=== PATIENT | female | born 1975 | race American Indian/Alaskan Native ===

== ENCOUNTER 2017-03-06 14:52 | Outpatient (CLI) | payer OTHER | END 2017-03-06 14:53 | disposition home or self-care (01) | LOC: LABHHL 14:52 | PROVIDERS: ATTEND Surgery | DX: D24.1 Benign neoplasm of right breast (principal) | CPT/HCPCS: 88305 ==

== ENCOUNTER 2017-04-06 11:12 | Emergency (ER) | payer OTHER ==
[2017-04-06 11:34] VITALS: BP 125/69
[2017-04-06] MEDS ORDERED: TYLENOL PO ONE (11:37)
[2017-04-06] MEDS ORDERED: ZOFRAN ODT PO ONE (11:37)
--- NOTE | 2017-04-06 13:24 | Emergency Department Report ---
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 female presents with sorethroat, sinus pressure , headache, congestion, chills, and fever for 1 day. 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 She is nauseous but denies vomiting. She is able to tolerate fluids and solids. She is not taking anything for symptoms at this time. Denies chest pain, wheezing, muscle aches, and SOB. ED Review of Systems ROS: Stated complaint: SORE THROAT Other details as noted in HPI Constitutional: chills, fever, malaise. denies: diaphoresis, weakness Eyes: denies: eye pain, eye discharge, vision change ENT: throat pain, congestion. denies: ear pain, dental pain, hearing loss, epistaxis Respiratory: cough. denies: orthopnea, shortness of breath, SOB with exertion, SOB at rest, stridor, wheezing Cardiovascular: denies: chest pain, palpitations Gastrointestinal: nausea. denies: abdominal pain, vomiting, diarrhea, constipation Musculoskeletal: back pain (chronic low back pain). denies: joint swelling, arthralgia Neurological: headache. denies: weakness, numbness, paresthesias ED Past Medical Hx - Past Medical History Previous Medical History?: Yes Hx Hypertension: Yes Hx Diabetes: Yes (BORDERLINE) Hx Asthma: Yes Additional medical history: GALLSTONE. HERNIATED DISK - Surgical History Additional Surgical History: lap band,nose surgery - Social History Smoking Status: Never Smoker Substance Use Type: None - Medications Home Medications: Home Medications Medication Instructions Recorded Confirmed Last Taken Type Hydrochlorothiazide [HCTZ] 25 mg PO QDAY 10/18/15 10/18/15 10/18/15 History Lisinopril [Zestril] 20 mg PO QDAY 10/18/15 10/18/15 10/17/15 History Metaxalone [Skelaxin] 800 mg PO TID PRN #15 tablet 10/18/15 Unknown Rx cloNIDine [Catapres] 0.1 mg PO QHS PRN 10/18/15 10/18/15 Unknown History Amoxicillin/K Clav Tab [Augmentin 1 tab PO Q12HR 5 Days #10 tab 04/06/17 Unknown Rx 875MG TAB] Fluticasone [Flonase] 1 spray NS QDAY #1 bottle 04/06/17 Unknown Rx Minor Respiratory Exam - Exam General: Vital signs noted. No distress. Alert and acting appropriately. HEENT: Yes Pharyngeal Erythema, Yes Moist Mucous Membranes, Yes Rhinorrhea, Yes Frontal Tenderness, No Pharyngeal Exudates, No Conjuctival Injection, No Maxillary Tenderness Ear: Neither TM Bulge, Neither TM Erythema, Neither EAC Pain, Neither EAC Discharge Neck: Yes Supple, No Adenopathy Lungs: Yes Good Air Exchange, Yes Cough, No Wheezes, No Ronchi, No Stridor, No Labored Respirations, No Retractions, No Use of Accessory Muscles, No Other Abnormal Lung Sounds Heart: Yes Regular, No Murmur Abdomen: Yes Normal Bowel Sounds, No Tenderness, No Peritoneal Signs Skin: No Rash, No Edema Neurologic: Alert and oriented, no deficits. Musculoskeletal: Unremarkable. ED Course Vital Signs 04/06/17 11:31 Temperature 101.3 F H Pulse Rate 88 Respiratory 18 Rate Blood Pressure 125/69 O2 Sat by Pulse 99 Oximetry ED Medical Decision Making - Medical Decision Making This is a 41 y.o. female presents with sinus pressure, sore throat, congestion, fever, and nausea x 1 day. 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 She is taking tylenol with no improvement. Negative flu and Strep test Physical assessment cc Received tylenol, zofran, decadron, and augmentin in ER Treated for Frontal Sinusitis: Discharged home with augmentin and flonase. F/U with PCP. Critical care attestation.: If time is entered above; I have spent that time in minutes in the direct care of this critically ill patient, excluding procedure time. ED Disposition Clinical Impression: Frontal sinusitis Qualifiers: Chronicity: acute Recurrence: non-recurrent Qualified Code(s): J01.10 - Acute frontal sinusitis, unspecified Disposition: TO HOME OR SELFCARE Is pt being admited?: No Does the pt Need Aspirin: No Condition: Stable Instructions: Sinusitis (ED) Additional Instructions: Increase fluid intake. Wash hands frequently to decrease the spread of infection. Take tylenol or ibuprofen to control fever. Follow up with Primary Care Provider if symptoms are not improving. Return to ER if chest pain, fever, abdominal pain, SOB, wheezing, or difficulty breathing. Prescriptions: Amoxicillin/K Clav Tab [Augmentin 875MG TAB] 1 tab PO Q12HR 5 Days #10 tab Fluticasone [Flonase] 1 spray NS QDAY #1 bottle Referrals: SAILAJA RIVERA MD [Primary Care Provider] - 3-5 Days [facility] [Outside] - 3-5 Days [facility] [Outside] - 3-5 Days [facility] [Outside] - 3-5 Days Time of Disposition: 15:44 Print Language: MALTESE
[2017-04-06] MEDS ORDERED: AUGMENTIN 875 MG PO ONE (15:26)
[2017-04-06] MEDS ORDERED: DECADRON IM ONE (15:26)
== END 2017-04-06 16:01 | disposition home or self-care (01) ==
LOC: ED 11:12
DX: J32.1 Chronic frontal sinusitis (principal); I10 Essential (primary) hypertension
CPT/HCPCS: 87116; 87400; 87430; 96372; 99282; J1100; Q0162

== ENCOUNTER 2017-06-02 10:45 | Emergency (ER) | payer OTHER ==
[2017-06-02 10:54] VITALS: BP 137/99
[2017-06-02] MEDS ORDERED: XYLOCAINE 1% MPF 5 mL INFILTRATI ONE (11:05)
--- NOTE | 2017-06-02 12:41 | Consultation ---
History of Present Illness Reason for consult: other - History of present illness History of present illness: 41 y.o. F presented to the er with c/o of nausea and vomiting. She had a lap band adjustment last Sunday in Dr. Lam office. Starting night she started to have nausea and vomiting. She denied any abdominal pain. She had tightness in her chest when she swallowed. She denies any fever or chills. denies any abdominal pain. She is passing gas and bms. Past History Past Medical History: hypertension Past Surgical History: Other (lap band 2009 ) Social history: no significant social history Family history: no significant family history Medications and Allergies Allergies Allergy/AdvReac Type Severity Reaction Status Date / Time No Known Allergies Allergy Verified 05/06/14 15:34 Home Medications Medication Instructions Recorded Confirmed Last Taken Type Hydrochlorothiazide [HCTZ] 25 mg PO QDAY 10/18/15 10/18/15 10/18/15 History Lisinopril [Zestril] 20 mg PO QDAY 10/18/15 10/18/15 10/17/15 History Metaxalone [Skelaxin] 800 mg PO TID PRN #15 tablet 10/18/15 Unknown Rx cloNIDine [Catapres] 0.1 mg PO QHS PRN 10/18/15 10/18/15 Unknown History Amoxicillin/K Clav Tab [Augmentin 1 tab PO Q12HR 5 Days #10 tab 04/06/17 Unknown Rx 875MG TAB] Fluticasone [Flonase] 1 spray NS QDAY #1 bottle 04/06/17 Unknown Rx Review of Systems All systems: negative - Constitutional poor appetite - Cardiovascular other (chest discomfort with swallowing ) - Respiratory no cough, no cough with sputum, no excessive sputum, no hemoptysis, no shortness of breath - Gastrointestinal nausea, vomiting, other (per hpi), no abdominal pain - Muskuloskeletal no shooting arm pain, no arm numbness/tingling, no low back pain, no shooting leg pain, no leg numbness/tingling - Integumentary no sores, no wounds, no jaundice - Neurological no weakness, no parathesias, no numbness, no tingling - Psychiatric no anxiety, no memory loss, no change in sleep habits Exam Vital Signs Temp Pulse Resp BP Pulse Ox 98.6 F 100 H 16 137/99 99 06/02/17 10:50 06/02/17 10:50 06/02/17 10:50 06/02/17 10:50 06/02/17 10:50 - General physical appearance Positive: well developed, well nourished, no distress - Eyes Positive: PERRL - Cardiovascular Rhythm: regular - Extremities Extremities: No edema - Breasts Breasts: deferred - Abdomen Abdomen: Present: soft, other (soft, nondistended. no rebound no guarding ). Absent: tender - Neurologic Neurologic: alert and oriented to time, place and person, motor strength and sensation are grossly intact, CN II-XII intact - Musculoskeletal normal gait, normal posture - Psychiatric Psychiatric: appropriate mood/affect, intact judgment & insight Assessment and Plan 41 y.o. F with hx of lap band with nausea and vomiting since adjustment After risks and benefits were explained, the pt agreed to have fluid removed from her lap band. 3cc removed total from band. after removal of fluid pt was able to drink fluids without nv or chest discomfort. Her symptoms were relieved after fluid removal therefore no imaging or labs needed to be done. I have instructed pt to follow up in office for fluid input. She has also been instructed to drink liquids slowly and not eat large amounts as this may cause a band slip. she understands the above instructions.
--- NOTE | 2017-06-02 12:48 | Discharge Summary ---
Providers - Providers Primary care physician: D[employer] A[employer]LYST Hospitalization Hospital course: pt presented to the er with c/o of n/v. Pt had lap band fluid removed and was able to drink fluid after without any c/c. She was discharged from the er. Disposition: DC-01 TO HOME OR SELFCARE Core Measure Documentation - Palliative Care Palliative Care/ Comfort Measures: Not Applicable - Core Measures Any of the following diagnoses?: none Exam - Physical Exam Narrative exam: abd: soft, nontender. no rebound no guarding. - Constitutional Vitals: Temp Pulse Resp BP Pulse Ox 98.6 F 100 H 16 137/99 99 06/02/17 10:50 06/02/17 10:50 06/02/17 10:50 06/02/17 10:50 06/02/17 10:50 Plan Additional Instructions: Slowly increase diet. Fluids. follow up in the office for band adjustment. Follow up with: PRIMARY MD CHRISTIANA [Primary Care Provider] - 7 Days
== END 2017-06-02 12:54 | disposition home or self-care (01) ==
LOC: ED 10:45
DX: R07.89 Other chest pain (principal); R11.2 Nausea with vomiting, unspecified
CPT/HCPCS: 99281

== ENCOUNTER 2017-10-17 11:00 | Outpatient (CLI) | payer OTHER | END 2017-10-17 11:01 | disposition home or self-care (01) | LOC: SLR 11:00 | PROVIDERS: ATTEND Otolaryngology | DX: G47.33 Obstructive sleep apnea (adult) (pediatric) (principal); I10 Essential (primary) hypertension; J45.909 Unspecified asthma, uncomplicated | CPT/HCPCS: 95810 ==

== ENCOUNTER 2020-09-17 13:16 | Outpatient (CLI) | payer OTHER ==
--- NOTE | 2020-09-17 17:05 | Mammography Report ---
DIGITAL SCREENING MAMMOGRAM WITH TOMOSYNTHESIS WITH CAD, 09/17/2020 CLINICAL INFORMATION / INDICATION: Screening TECHNIQUE: Digital bilateral 2D and 3D mammography with tomosynthesis was obtained in the craniocaud al and mediolateral oblique projections. Computer-Aided Detection (CAD) analysis was used for interp retation of this study. COMPARISON: 01/30/2019 FINDINGS: Breast Density: The breasts are heterogeneously dense, which may obscure small masses. No dominant mass, suspicious calcifications, or architectural distortion in either breast. Mild calcifications are not significantly changed. IMPRESSION: No mammographic evidence of malignancy. Follow up recommendation: Routine yearly BI-RADS Category 2: Benign. A "normal" or negative report should not discourage follow up or biopsy of a clinically significant f inding. A written summary of these findings will be mailed to the patient. The patient will be entered into a mammography reporting system which will generate a reminder letter for the patient's next appointmen t at the appropriate interval. The [employer] recommends yearly mammograms starting at age 40 and continuing as l robert as a woman is in good health. Breast MRI is recommended for women with an approximate 20-25% or greater lifetime risk of breast cancer, including women with a strong family history of breast or ova marcy cancer or who have been treated for Hodgkin's disease. Signer Name: Zach Blum MD Signed: 09/17/2020 5:01 PM Workstation Name: [id number]
== END 2020-09-17 13:17 | disposition home or self-care (01) ==
LOC: SPVWC 13:16
PROVIDERS: ATTEND Surgery
DX: Z12.31 Encounter for screening mammogram for malignant neoplasm of breast (principal); N64.89 Other specified disorders of breast
CPT/HCPCS: 77063; 77067